=== PATIENT | female | born 1965 | race Caucasian/White ===

== ENCOUNTER → 2019-05-21 | Outpatient (CLI) | payer OTHER ==
[~2019-05-21] MED LIST: ACETAMINOPHEN325 M1 PO; ACID CONTROL20 MG PO; ALAVERT10 MG PO; AMBEREN PO; ASPIRIN EC81 M1 PO; ATIVAN0.5 MG PO; BACLOFEN20 MG PO; CEFTIN 250 MG250 MG PO; CELEXA40 MG PO; CENTRUM SILVER1 EAC4 PO; CHLORPROMAZINE50 M2 PO; CONSTULOSE10 GM/15 M; CYMBALTA60 MG PO; DEEP SEA NASAL44 M1 NASAL; DEPAKOTE125 MG PO; DUONEB 2.5-0.5 M3 ML INH; EUCERIN CREME120 GM; FENOFIBRATE54 MG PO; FISH OIL 1,001000 M1 PO; FUROSEMIDE 40 M40 M1 PO; HALDOL5 MG/1 ML IV; HYDROCODON-ACE1 EAC1 PO; HYDROCODON-ACE1 EAC8 PO; INVEGA6 MG PO; KLOR-CON 1010 MEQ; LATUDA80 MG PO; MAALOX ADVANCE355 M1; MAALOX SUSPENS148 ML; MILK OF MA2400 MG/10; MIRALAX17 GM; MOM; NAMENDA 10 MG T10 MG PO; NAMENDA 5 MG TAB5 M1 PO; NEURONTIN 400400 M1 PO; NUEDEXTA 20-101 EACH PO; PROAIR HFA8.5 GM; RISPERDAL2 MG PO; ROBITUSSIN DM118 ML PO; SENEXON-S TABL1 EACH; SILTUSSIN100 MG/5 M; TRAZODONE HCL50 MG PO; VALIUM2 MG PO; VENTOLIN HFA 1818 GM; VENTOLIN HFA 1818 GM INH; VITAMIN C500 M1 PO; ZPAK PO
== END ==
LOC: RAD 05-09 08:57
DX: Z12.31 Encounter for screening mammogram for malignant neoplasm of breast (principal)

== ENCOUNTER → 2021-05-20 | Outpatient (CLI) | payer OTHER | LOC: BC 09:19 | PROVIDERS: ATTEND Internal Medicine Geriatric Medicine | DX: Z12.31 Encounter for screening mammogram for malignant neoplasm of breast (principal) ==